=== PATIENT | male | born 1930 | race Caucasian/White ===

== ENCOUNTER 2016-12-09 14:48 | Observation (INO) | payer MEDICARE ==
[~2016-12-09] VITALS: Ht 193 cm; Wt 86.4 kg
[2016-12-09 15:59] LABS: BASOPHILS 0.2 % (0-2); EOSINOPHILS 0.2 % (0-7); HEMATOCRIT 39.8 % (42.0-54.0); HEMOGLOBIN 13.4 g/dL (13.5-17.5); IMMATURE GRANULOCYTES 0.1 % (0-5); LYMPHOCYTES 8.7 % (15-50); MCH 33.8 pg (26.0-34.0); MCHC 33.7 g/dL (31.0-37.0); MCV 100.3 fL (80.0-100.0); MONOCYTES 7.3 % (2-11); NEUTROPHILS 83.5 % (40-80); PLATELET COUNT 181 10x3/uL (130-400); RBC 3.97 10x6/uL (4.20-6.10); RDW 13.4 % (11.5-14.5); WBC 9.1 10x3/uL (4.8-10.8)
[2016-12-09 16:06] LABS: INR 1.05 (0.85-1.17); PROTIME 13.6 SECONDS (11.6-15.0)
[2016-12-09 16:12] LABS: ALBUMIN 3.4 g/dL (3.4-5.0); ANION GAP 11.5 mmol/L (8-16); BILIRUBIN - TOTAL 1.1 mg/dL (0.2-1.3); CALCIUM 8.7 mg/dL (8.5-10.1); CARBON DIOXIDE 26.4 mmol/L (21.0-32.0); CREATININE - SERUM 1.1 mg/dL (0.6-1.3); POTASSIUM - SERUM 3.9 mmol/L (3.5-5.1)
[2016-12-09 16:20] LABS: MAGNESIUM - SERUM 1.9 mg/dL (1.8-2.4); TROPONIN-I 0.021 ng/mL (0.000-0.060)
[2016-12-09 18:16] LABS: APPEARANCE CLEAR (CLEAR); BILIRUBIN NEGATIVE (NEGATIVE); COLOR YELLOW (YELLOW); GLUCOSE NEGATIVE (NEGATIVE); KETONE NEGATIVE (NEGATIVE); LEUKOCYTE ESTERASE NEGATIVE (NEGATIVE); NITRITE NEGATIVE (NEGATIVE); PROTEIN NEGATIVE (NEGATIVE); SPECIFIC GRAVITY 1.015 (1.005-1.020); UROBILINOGEN NORMAL (NORMAL)
[2016-12-09 18:40] LABS: UDS - AMPHET NEGATIVE QUAL (NEGATIVE); UDS - BARB NEGATIVE QUAL (NEGATIVE); UDS - BENZO NEGATIVE QUAL (NEGATIVE); UDS - COCAINE NEGATIVE QUAL (NEGATIVE); UDS - METH NEGATIVE QUAL (NEGATIVE); UDS - OPIATE POSITIVE QUAL (NEGATIVE); UDS - PCP NEGATIVE QUAL (NEGATIVE); UDS - THC NEGATIVE QUAL (NEGATIVE)
--- NOTE | 2016-12-09 21:51 | NUR ---
PT RECIEVED TO ROOM 2231 WITH INFUSION OF NS TO GRAVITY TO PIV 20 GA TO LEFT HAND COMPLAINS OF PAIN TO ARM NOTED REDNESS TO LEFT HAND AND UP LEFT ARM INFUSION STOPPED AND WILL RESITE IV.
[2016-12-09 22:22] LABS: CKMB 0.5 U/L (0.0-3.6); CREATINE KINASE 61 UL (21-232); TROPONIN-I 0.026 ng/mL (0.000-0.060)
[2016-12-09] MEDS ORDERED: ULTRAM50 MG PO (22:58)
[2016-12-09] MEDS ORDERED: K-TAB10 MEQ PO (22:58)
[2016-12-09] MEDS ORDERED: LEVOTHYROXINE50 MCG PO (23:02)
[2016-12-09] MEDS ORDERED: REQUIP4 MG PO (23:02)
[2016-12-09] MEDS ORDERED: FUROSEMIDE20 MG PO (23:03)
[2016-12-09] MEDS ORDERED: PROTONIX40 MG PO (23:03)
[2016-12-09 23:22] VITALS: BP 140/73; Ht 193 cm; Wt 86.4 kg
[2016-12-10 00:14] VITALS: BP 123/57
[2016-12-10 04:00] VITALS: BP 115/61
[2016-12-10 04:19] LABS: CKMB 0.9 U/L (0.0-3.6); CREATINE KINASE 54 UL (21-232); TROPONIN-I 0.022 ng/mL (0.000-0.060)
--- NOTE | 2016-12-10 04:47 | NUR ---
RESITED PIV EARLIER IN SHIFT 20 GA X 1 STICK TO RIGHT FORARM PATENT TO NS AT 100 ML/HR PER ORDER
--- NOTE | 2016-12-10 08:00 | NUR ---
PT AOX1 RESP EVEN AND NONLABORED PT DENIES NEEDS AT THIS TIME SRX2 BED AT LOWEST SETTING CALL LIGHT WITHIN REACH WILL CONTINUE TO MONITOR
[2016-12-10 08:18] VITALS: BP 116/74
[2016-12-10 10:15] LABS: CKMB 0.9 U/L (0.0-3.6); CREATINE KINASE 67 UL (21-232); TROPONIN-I 0.026 ng/mL (0.000-0.060)
[2016-12-10 12:24] VITALS: BP 149/71
--- NOTE | 2016-12-10 13:45 | NUR ---
IV DISCONTINUED WITH CATHETER INTACT AT THIS TIME PT AND CAREGIVER GIVEN DISCHARGE INSTRUCTIONS PT WALKED WITH FAMILY MEMBER TO PRIVATE VEHICLE HOME
== END 2016-12-10 13:46 | disposition home or self-care (01) ==
LOC: D.ER 14:48 → OBSVTIME 20:35 → D.MS 20:35
PROVIDERS: Family Medicine; Nurse Practitioner Family; ADMIT Family Medicine
DX: F03.90 Unspecified dementia, unspecified severity, without behavioral disturbance, psychotic disturbance, mood disturbance, and anxiety (principal)

== ENCOUNTER 2017-04-27 11:34 | Emergency (ER) | payer MEDICARE, BC ==
[2016-12-09 23:22] VITALS: BMI 23.1
[~2017-04-27 11:34] MED LIST: FUROSEMIDE20 MG PO; K-TAB10 MEQ PO; LEVOTHYROXINE50 MCG PO; PROTONIX40 MG PO; REQUIP4 MG PO; ULTRAM50 MG PO
== END 2017-04-27 14:47 | disposition home or self-care (01) ==
LOC: D.ER 11:34
DX: S01.112A Laceration without foreign body of left eyelid and periocular area, initial encounter (principal); W19.XXXA Unspecified fall, initial encounter; Y93.89 Activity, other specified; Y92.029 Unspecified place in mobile home as the place of occurrence of the external cause; S00.33XA Contusion of nose, initial encounter; F17.200 Nicotine dependence, unspecified, uncomplicated

== ENCOUNTER 2018-10-07 16:35 | Inpatient (IN) | payer MEDICARE, BC ==
[~2018-10-07] VITALS: Ht 188 cm; Wt 85.3 kg
[2018-10-07 17:23] LABS: BASOPHILS 0.3 % (0-2); EOSINOPHILS 1.6 % (0-7); HEMATOCRIT 39.3 % (42.0-54.0); HEMOGLOBIN 13.3 g/dL (13.5-17.5); IMMATURE GRANULOCYTES 0.1 % (0-5); LYMPHOCYTES 21.6 % (15-50); MCH 33.3 pg (26.0-34.0); MCHC 33.8 g/dL (31.0-37.0); MCV 98.3 fL (80.0-100.0); MONOCYTES 8.5 % (2-11); NEUTROPHILS 67.9 % (40-80); PLATELET COUNT 202 10x3/uL (130-400); RDW 13.3 % (11.5-14.5); WBC 7.3 10x3/uL (4.8-10.8)
[2018-10-07 17:37] LABS: ALBUMIN 3.2 g/dL (3.4-5.0); ALKALINE PHOSPHATASE 138 U/L (46-116); ALT (SGPT) 34 U/L (10-68); BILIRUBIN - TOTAL 0.65 mg/dL (0.2-1.3); CALC OSMOLALITY 283 mosm/kg (275-300); CALCIUM 8.8 mg/dL (8.5-10.1); CARBON DIOXIDE 28.2 mmol/L (21.0-32.0); CHLORIDE - SERUM 106 mmol/L (98-107); GLUCOSE 101 mg/dL (74-106); POTASSIUM - SERUM 3.8 mmol/L (3.5-5.1); PROTEIN - SERUM 6.9 g/dL (6.4-8.2); SODIUM 141 mmol/L (136-145); UREA NITROGEN 21 mg/dL (7-18); eGFR NON AFRICAN AMERICAN 75 mL/min (90-120)
[2018-10-07 17:56] LABS: COLOR YELLOW (YELLOW)
[2018-10-07 17:57] LABS: APPEARANCE CLEAR (CLEAR); BILIRUBIN NEGATIVE (NEGATIVE); GLUCOSE NEGATIVE (NEGATIVE); KETONE NEGATIVE (NEGATIVE); NITRITE NEGATIVE (NEGATIVE); PROTEIN NEGATIVE (NEGATIVE); SPECIFIC GRAVITY 1.025 (1.005-1.020); UROBILINOGEN NORMAL (NORMAL)
[2018-10-07 17:58] LABS: BACTERIA FEW /hpf (NONE SEEN); RED CELLS - URINE OCC /hpf (0-5); WHITE CELLS - URINE RARE /hpf (0-5)
[2018-10-07 18:41] VITALS: BP 142/61
[2018-10-07 19:45] VITALS: BP 150/74
[2018-10-07 20:41] VITALS: BP 150/74; BMI 24.2
[2018-10-07 23:55] VITALS: BP 151/80
[2018-10-08 03:45] VITALS: BP 160/70
[2018-10-08 08:42] VITALS: BP 127/67
--- NOTE | 2018-10-08 14:25 | HP ---
PATIENT: BILLY GUERRERO MEDICAL RECORD: [id number] ACCOUNT: [id number] LOCATION:[facility] : 30 ADMISSION DATE: 10/07/18 PCP: BARTOLOME ROLLE MD HISTORY AND PHYSICAL EXAMINATION CHIEF COMPLAINT: Pain and swelling in groin. HISTORY OF PRESENT ILLNESS: This is an 88-year-old male who presented to the Emergency Department complaining of acute onset of left groin pain, just this morning. He denies any trauma. His workup in the Emergency Department was fairly unremarkable except for left inguinal hernia. The ER doctor states he could partially reduce it, but not all the way. He has fairly normal BMs and passing urine okay. He is admitted. PAST MEDICAL AND SURGICAL HISTORY: He has some dementia. He has a history of BPH. He has a history of hypothyroidism. He has degenerative disc disease in his back. He has had restless leg syndrome. He has a history of aortic stenosis with murmur. According to his caregiver, Ms. Funez, Dr. Nuñez has recommended that he have surgery for this. However, it is stated that the patient really does not want to have any kind of surgery. He is ready to at any time. Basically, he had stopped taking any medications except Tramadol. CURRENT MEDICATIONS: Includes Tramadol 50 mg t.i.d. He was previously on Ropinirole, trazodone, Protonix, levothyroxine, Lasix, and potassium, but he is no longer taking any of them. PAST SURGICAL HISTORY: Reportedly transurethral resection of the prostate and right total knee arthroplasty. ALLERGIES: No known drug allergies. HABITS: Former smoker, occasional alcohol, no illicit drug use. SOCIAL HISTORY: He is retired, . FAMILY HISTORY: Parents are . REVIEW OF SYSTEMS: GENERAL: Reported that he has lost about 20 pounds or more in the last few months. HEENT: No particular sinus or allergy problems. RESPIRATORY: No history of asthma or emphysema. CARDIAC: He has history of aortic stenosis. GASTROINTESTINAL: Some heartburn. GENITOURINARY: He has a history of BPH. MUSCULOSKELETAL: He complains of chronic back pain. He has had his right knee replaced. NEUROLOGIC: No seizures. No migraines. He does have dementia with very poor short-term memory. PSYCHIATRIC: No depression or melancholia. PHYSICAL EXAMINATION: VITAL SIGNS: Temperature 97.2, pulse 54, respirations 18, blood pressure 142/61, and O2 sat 99%. GENERAL: He is in no acute distress, lying comfortably in the bed. He is very HISTORY AND PHYSICAL [id number] BILLY GUERRERO, talkative. HEENT: Unremarkable. NECK: Supple. HEART: Regular rate and rhythm with III-IV/ systolic murmur. LUNGS: Clear. ABDOMEN: Soft, except he does have swelling in the left inguinal canal consistent with hernia. EXTREMITIES: No edema. LABORATORY DATA: Urinalysis is unremarkable. CBC with a white count of 7.3, hemoglobin 13, and hematocrit 39. Basic metabolic panel is all okay. Alkaline phosphatase is 138. Other liver functions are all normal. ASSESSMENT: 1. Left inguinal hernia. 2. Aortic stenosis. 3. Dementia. 4. Hypothyroidism. 5. Chronic low back pain. PLAN: Surgical consultation. Possible cardiac evaluation. Again, according to his caregiver and the patient, he declines taking medications. He has declined surgery for his aortic valve. Basically, he is ready to any time, but he has painful hernia now. TRANSINT:[id number] Voice Confirmation ID: [id number] DOCUMENT ID: [id number] MIGUEL NATHAN MD at 1425 CC: [id number] DICTATION DATE: 10/07/182153 MANAGER MEDICAL: 10/08/18 0029 ADM IN [facility] [address] [place] [address]
[2018-10-08] MEDS ORDERED: HYDROCODON-ACE1 EAC7 PO (14:36)
[2018-10-08 15:07] VITALS: Ht 188 cm; Wt 85.3 kg
[2018-10-08 16:10] VITALS: BP 163/90
[2018-10-08 18:36] VITALS: BP 72/38
[2018-10-08 21:12] VITALS: BP 133/85
[2018-10-09 01:43] VITALS: BP 143/81
[2018-10-09 09:13] LABS: BASOPHILS 0.2 % (0-2); EOSINOPHILS 0.3 % (0-7); HEMATOCRIT 38.2 % (42.0-54.0); HEMOGLOBIN 13.2 g/dL (13.5-17.5); IMMATURE GRANULOCYTES 0.3 % (0-5); LYMPHOCYTES 13.8 % (15-50); MCH 33.5 pg (26.0-34.0); MCHC 34.6 g/dL (31.0-37.0); MEAN PLATELET VOLUME 10.4 fL (7.4-10.4); MONOCYTES 12.1 % (2-11); NEUTROPHILS 73.3 % (40-80); PLATELET COUNT 204 10x3/uL (130-400); RBC 3.94 10x6/uL (4.20-6.10); RDW 13.4 % (11.5-14.5)
[2018-10-09 09:31] LABS: ANION GAP 12.6 mmol/L (8-16); CALCIUM 8.8 mg/dL (8.5-10.1); CARBON DIOXIDE 24.7 mmol/L (21.0-32.0); CREATININE - SERUM 1.2 mg/dL (0.6-1.3); POTASSIUM - SERUM 4.3 mmol/L (3.5-5.1)
[2018-10-09 09:50] LABS: WBC 12.8 10x3/uL (4.8-10.8)
--- NOTE | 2018-10-09 09:55 | MORECARE ---
CASE MANAGEMENT DISCHARGE SUMMARY PATIENT: BILLY GUERRERO UNIT: [id number] ADM DATE: 10/08/18 AGE: 88 : 30 SEX: M ROOM/BED: D.[facility] AUTHOR: YFN ENGLAND PHYSICIAN: REFERRING PHYSICIAN: BARTOLOME ROLLE MD DATE OF SERVICE: 10/09/18 Discharge Plan Patient Name: BILLY GUERRERO Facility: [facility]:[place] : 1930 Planned Disposition: Inpatient Rehab Anticipated Discharge Date: Discharge Date: Expected LOS: Initial Reviewer: [email or web address] Initial Review Date: 10/09/2018 Generated: 10/09/18 10:55 am Patient Name: BILLY GUERRERO Page [id number] at 0955 All edits/amendments must be made on the electronic document DICTATION DATE: 10/09/18953 GRAVEL TRUCK DRIVER: SHAILESH 10/09/18953 RPT#: [id number] DC DATE: STATUS: ADM IN [facility] [address] [place] [address] END OF REPORT
--- NOTE | 2018-10-09 10:02 | MORECARE ---
CASE MANAGEMENT DISCHARGE SUMMARY PATIENT: BILLY GUERRERO UNIT: [id number] ADM DATE: 10/08/18 AGE: 88 : 30 SEX: M ROOM/BED: D.2231 AUTHOR: YFN ENGLAND PHYSICIAN: REFERRING PHYSICIAN: BARTOLOME ROLLE MD DATE OF SERVICE: 10/09/18 Discharge Plan Patient Name: BILLY GUERRERO Facility: [facility]:[place] : 1930 Planned Disposition: Inpatient Rehab Anticipated Discharge Date: Discharge Date: Expected LOS: Initial Reviewer: [email or web address] Initial Review Date: 10/09/2018 Generated: 10/09/18 11:01 am DCPIA - Discharge Planning Initial Assessment Updated by [email or web address]: Marianna Mobley on 10/09/18 9:59 am * Is the patient Alert and Oriented? Yes * How many steps to enter\exit or inside your home? 0/5 * PCP Dr. Rolle * Pharmacy [facility] * Preadmission Environment Home with Family * ADLs Partial Dependent * Partial ADLs (Assistance needed) Ambulation Bathing Medication Management * Equipment Bedside Commode Rolling Walker * List name and contact numbers for known caregivers / representatives who currently or will assist patient after discharge: Rin Cartergano - natalie/caregiver/[facility] - [phone] * Verbal permission to speak to the caregivers and representatives has been obtained from the patient. Yes * Community resources currently utilized None * Additional services required to return to the preadmission environment? Yes * Can the patient safely return to the preadmission environment? No * Has this patient been hospitalized within the prior 30 days at any hospital? No Last DP export: 10/09/18 8:55 am Patient Name: BILLY GUERRERO Page [id number] at 1002 All edits/amendments must be made on the electronic document DICTATION DATE: 10/09/18 1001 COIL WINDING MACHINES SET UP MECHANIC: SHAILESH 10/09/18 1001 RPT#: [id number] DC DATE: STATUS: ADM IN [place] [address] [place] [address] END OF REPORT
--- NOTE | 2018-10-09 10:09 | MORECARE ---
CASE MANAGEMENT DISCHARGE SUMMARY PATIENT: BILLY GUERRERO UNIT: [id number] ADM DATE: 10/08/18 AGE: 88 : 30 SEX: M ROOM/BED: D.2231 AUTHOR: YFN ENGLAND PHYSICIAN: REFERRING PHYSICIAN: BARTOLOME ROLLE MD DATE OF SERVICE: 10/09/18 Discharge Plan Patient Name: BILLY GUERRERO Facility: [facility]:[place] : 1930 Planned Disposition: Inpatient Rehab Anticipated Discharge Date: Discharge Date: Expected LOS: Initial Reviewer: [email or web address] Initial Review Date: 10/09/2018 Generated: 10/09/18 11:09 am Comments DCP- Discharge Planning Updated by [id number]: Marianna Mobley on 10/09/18 9:[address] Patient Name: BILLY GUERRERO Admission Status: ER Accout number: [id number] Admission Date: 10-08-2018 : 1930 Admission Diagnosis: Attending: BARTOLOME ROLLE Current LOS: 1 Anticipated DC Date: Planned Disposition: Inpatient Rehab Primary Insurance: MEDICARE A & B Discharge Planning Comments: Met with patient and his niece to discuss discharge planning/needs. He lives with his niece (Rin). She states she is also his POA. She states that he has 5 steps to go down into his apartment area in her home. She states that she sets up his medication box and assists him upstairs for his daily shower. She states otherwise, he stays in his apartment area where she has the cooking elements turned off for safety, but he has a microwave and refrigerator and living/bed rooms. She states she encourages him to use his walker, but doesn't always use it and has been falling more recently. She would like him to go to a short term rehab at [facility] or [facility]. She did sign [facility] for [facility] if not accepted to inpatient rehab. CM will continue to follow and assist with discharge planning/needs. Technical System Analyst: Marianna Mobley DCPIA - Discharge Planning Initial Assessment Updated by [id number]: Marianna Mobley on 10/09/18 9:59 am * Is the patient Alert and Oriented? Yes * How many steps to enter\exit or inside your home? 0/5 * PCP Dr. Rolle * Pharmacy [facility] [address] * Preadmission Environment Home with Family * ADLs Partial Dependent * Partial ADLs (Assistance needed) Ambulation Bathing Medication Management * Equipment Bedside Commode Rolling Walker * List name and contact numbers for known caregivers / representatives who currently or will assist patient after discharge: Rin Angel - niece/caregiver/[facility] - [phone] * Verbal permission to speak to the caregivers and representatives has been obtained from the patient. Yes * Community resources currently utilized None * Additional services required to return to the preadmission environment? Yes * Can the patient safely return to the preadmission environment? No * Has this patient been hospitalized within the prior 30 days at any hospital? No Coverage Notice Reviewer: [email or web address] Alva Mobley Notice Issued Date-Time: 10/09/2018 10:04 Notice Type: Patient Choice Letter Notice Delivered To: Family Member Relationship to Patient: Niece Death Claim Examiner Name: Rin Angel Delivery Method: HAND - Hand Delivered Hattie Days: Prior Verbal Notification: Recipient Understood Notice: Yes Recipient Signature: Yes Med Rec Note Co-signed by Attending: Coverage Notice Comment: [facility] for [facility] Last DP export: 10/09/18 9:02 am Patient Name: BILLY GUERRERO Page 43649 at 1009 All edits/amendments must be made on the electronic document DICTATION DATE: 10/09/18 1008 COSMETOLOGIST: SHAILESH 10/09/18 1008 RPT#: [id number] DC DATE: STATUS: ADM IN [facility] [address] [place] [address] END OF REPORT
[2018-10-09 12:26] LABS: CKMB 2.1 U/L (0.0-3.6); CREATINE KINASE 193 UL (21-232); TROPONIN-I 0.057 ng/mL (0.000-0.060)
[2018-10-09 14:00] VITALS: BP 135/75; BP 140/104
--- NOTE | 2018-10-09 14:43 | MORECARE ---
CASE MANAGEMENT DISCHARGE SUMMARY PATIENT: BILLY GUERRERO UNIT: [id number] ADM DATE: 10/08/18 AGE: 88 : 30 SEX: M ROOM/BED: D.2231 AUTHOR: YFN ENGLAND PHYSICIAN: REFERRING PHYSICIAN: BARTOLOME ROLLE MD DATE OF SERVICE: 10/09/18 Discharge Plan Patient Name: BILLY GUERRERO Facility: [facility]:[place] : 1930 Planned Disposition: Inpatient Rehab Anticipated Discharge Date: Discharge Date: Expected LOS: Initial Reviewer: [email or web address] Initial Review Date: 10/09/2018 Generated: 10/09/18 3:43 pm Comments DCP- Discharge Planning Updated by [id number]: Marianna Meredithsusan on 10/09/18 1:[address] Patient Name: BILLY GUERRERO Encounter No: [id number] : 1930 Primary Insurance: MEDICARE A & B Anticipated DC Date: Planned Disposition: Inpatient Rehab External Planned Provider: : DCP follow-up note: Patient and family in agreement with discharge plan. No changes to plan. He is discharging today to inpatient rehab. I called Rin and informed her of this and she agrees with discharge plan. Case management will follow and assist as needed. Marianna Meredithsusan DCP- Discharge Planning Updated by [id number]: Marianna Mobley on 10/09/18 9:[address] Patient Name: BILLY GUERRERO Admission Status: ER Accout number: [id number] Admission Date: 10-08-2018 : 1930 Admission Diagnosis: Attending: BARTOLOME ROLLE Current LOS: 1 Anticipated DC Date: Planned Disposition: Inpatient Rehab Primary Insurance: MEDICARE A & B Discharge Planning Comments: Met with patient and his niece to discuss discharge planning/needs. He lives with his niece (Rin). She states she is also his POA. She states that he has 5 steps to go down into his apartment area in her home. She states that she sets up his medication box and assists him upstairs for his daily shower. She states otherwise, he stays in his apartment area where she has the cooking elements turned off for safety, but he has a microwave and refrigerator and living/bed rooms. She states she encourages him to use his walker, but doesn't always use it and has been falling more recently. She would like him to go to a short term rehab at [facility]. She did sign [facility] for [facility] if not accepted to inpatient rehab. CM will continue to follow and assist with discharge planning/needs. Inhalation Therapy Aides Teacher: Marianna Mobley DCPIA - Discharge Planning Initial Assessment Updated by [id number]: Marianna Mobley on 10/09/18 9:59 am * Is the patient Alert and Oriented? Yes * How many steps to enter\exit or inside your home? 0 * PCP Dr. Rolle * Pharmacy [facility] * Preadmission Environment Home with Family * ADLs Partial Dependent * Partial ADLs (Assistance needed) Ambulation Bathing Medication Management * Equipment Bedside Commode Rolling Walker * List name and contact numbers for known caregivers / representatives who currently or will assist patient after discharge: Rin Stanley - niece/caregiver/[facility] - [phone] * Verbal permission to speak to the caregivers and representatives has been obtained from the patient. Yes * Community resources currently utilized None * Additional services required to return to the preadmission environment? Yes * Can the patient safely return to the preadmission environment? No * Has this patient been hospitalized within the prior 30 days at any hospital? No Coverage Notice Reviewer: [id number] - Marianna Mobley Notice Issued Date-Time: 10/09/2018 10:04 Notice Type: Patient Choice Letter Notice Delivered To: Family Member Relationship to Patient: Niece Modeling Director Name: Rin Angel Delivery Method: HAND - Hand Delivered Hattie Days: Prior Verbal Notification: Recipient Understood Notice: Yes Recipient Signature: Yes Med Rec Note Co-signed by Attending: Coverage Notice Comment: [facility] Last DP export: 10/09/18 9:09 am Patient Name: BILLY GUERRERO Page [phone] at 1443 All edits/amendments must be made on the electronic document DICTATION DATE: 10/09/181441 ANIMAL HOSPITAL CLERK: SHAILESH 10/09/181441 RPT#: [id number] SD DATE: STATUS: ADM IN [facility] [address] [place] [address] END OF REPORT
[2018-10-09 15:45] LABS: CKMB 2.4 U/L (0.0-3.6); CREATINE KINASE 170 UL (21-232); TROPONIN-I 0.053 ng/mL (0.000-0.060)
[2018-10-09] MEDS ORDERED: HYDROCODON-ACE1 EAC7 PO (17:35)
[2018-10-09] MEDS ORDERED: MIRALAX17 GM PO (19:50)
[2018-10-10] MEDS ORDERED: PROTONIX40 MG PO (12:17)
[2018-10-10] MEDS ORDERED: SYNTHROID50 MCG PO (12:27)
[2018-10-10] MEDS ORDERED: FUROSEMIDE20 MG PO (12:27)
[2018-10-10] MEDS ORDERED: REQUIP4 MG PO (12:28)
[2018-10-10] MEDS ORDERED: K-TAB10 MEQ PO (12:29)
== END 2018-10-09 18:29 | DRG 351 ==
LOC: D.ER 16:35 → D.EDHOLD 18:34 → D.MS 18:34 → OBSVTIME 18:34 → D.EDHOLD 18:34 → D.MS 19:51
PROVIDERS: Emergency Medicine; Surgery; ADMIT Family Medicine; ATTEND Family Medicine
PROC: 0YU60JZ Supplement Left Inguinal Region with Synthetic Substitute, Open Approach (ICD-10-PCS; principal; 2018-10-07)
DX: K40.30 Unilateral inguinal hernia, with obstruction, without gangrene, not specified as recurrent (principal); F03.91 Unspecified dementia, unspecified severity, with behavioral disturbance; F05 Delirium due to known physiological condition; F03.90 Unspecified dementia, unspecified severity, without behavioral disturbance, psychotic disturbance, mood disturbance, and anxiety; E03.9 Hypothyroidism, unspecified; Z91.83 Wandering in diseases classified elsewhere

== ENCOUNTER 2018-10-09 12:56 | Inpatient (IN) | payer MEDICARE, BC ==
[~2018-10-09 12:56] MED LIST changes: +HYDROCODON-ACE1 EAC7 PO
[2018-10-09] MEDS ORDERED: HYDROCODON-ACE1 EAC7 PO (17:35)
--- NOTE | 2018-10-09 19:39 | NUR ---
PATIENT IS RESTING IN HIS BED. HIS BED IS DOWN LOW WITH SIDE RAILS UP X2 AND CALL LIGHT IS IN REACH.
[2018-10-09] MEDS ORDERED: MIRALAX17 GM PO (19:50)
--- NOTE | 2018-10-09 21:44 | NUR ---
PT RESTING IN BED WITH EYES OPEN. ALERT TO SELF. PT IS VERY [place]. IM UNABLE TO DETERMINE HIS ORIENTATION DUE TO THIS. PT IS NOT FOLLOWING SAFETY INSTRUCTIONS. HE HAS GOTTEN OUT OF BED SEVERAL TIMES THIS SHIFT. BED ALARM RINGS WHEN HE GETS UP. PT INC. OF A SMALL AMOUNT OF URINE AT THIS TIME. INC. CARE GIVEN. SR'S ARE UP X 3 IN BED. CALL LIGHT AND BEDSIDE TABLE ARE WITHIN EASY REACH.
[2018-10-09 22:01] VITALS: BP 141/82
[2018-10-09 22:21] VITALS: BP 141/82; BMI 24.2
--- NOTE | 2018-10-09 23:42 | NUR ---
PT IS RESTING QUIETLY IN BED WITH EYES CLOSED. RESPS ARE EVEN AND UNLABORED. NO ACUTE DISTRESS NOTED.
[2018-10-10 00:44] LABS: CREATINE KINASE 137 UL (21-232)
--- NOTE | 2018-10-10 03:32 | NUR ---
PT RESTING IN BED WITH EYES CLOSED. ASSISTED TO THE BATHROOM PRN.
--- NOTE | 2018-10-10 05:56 | NUR ---
PT IS RESTING IN BED WITH EYES OPEN. NO NEEDS VOICED.
[2018-10-10 06:17] LABS: BASOPHILS 0.1 % (0-2); EOSINOPHILS 0.4 % (0-7); HEMATOCRIT 36.6 % (42.0-54.0); HEMOGLOBIN 12.6 g/dL (13.5-17.5); IMMATURE GRANULOCYTES 0.3 % (0-5); LYMPHOCYTES 12.9 % (15-50); MCH 33.5 pg (26.0-34.0); MCHC 34.4 g/dL (31.0-37.0); MCV 97.3 fL (80.0-100.0); MEAN PLATELET VOLUME 10.5 fL (7.4-10.4); MONOCYTES 10.5 % (2-11); NEUTROPHILS 75.8 % (40-80); PLATELET COUNT 199 10x3/uL (130-400); RBC 3.76 10x6/uL (4.20-6.10); RDW 13.5 % (11.5-14.5); WBC 12.8 10x3/uL (4.8-10.8)
[2018-10-10 06:57] LABS: CALC OSMOLALITY 278 mosm/kg (275-300); CALCIUM 8.4 mg/dL (8.5-10.1); CARBON DIOXIDE 24.8 mmol/L (21.0-32.0); CHLORIDE - SERUM 105 mmol/L (98-107); CKMB 0.6 U/L (0.0-3.6); CREATINE KINASE 108 UL (21-232); CREATININE - SERUM 0.9 mg/dL (0.6-1.3); GLUCOSE 110 mg/dL (74-106); POTASSIUM - SERUM 3.8 mmol/L (3.5-5.1); SODIUM 138 mmol/L (136-145); TROPONIN-I 0.034 ng/mL (0.000-0.060); eGFR NON AFRICAN AMERICAN 84 mL/min (90-120)
[2018-10-10 06:58] LABS: UREA NITROGEN 18 mg/dL (7-18)
[2018-10-10 08:00] VITALS: BP 103/47
--- NOTE | 2018-10-10 08:00 | NUR ---
SHIFT ASSMT COMPLETED.
[2018-10-10 10:13] VITALS: BMI 24.1
[2018-10-10 11:28] LABS: CKMB 0.7 U/L (0.0-3.6); CREATINE KINASE 93 UL (21-232); TROPONIN-I 0.028 ng/mL (0.000-0.060)
--- NOTE | 2018-10-10 11:46 | NUR ---
PATIENT ADMITTED TO REHAB FROM ACUTE FLOOR. DR. ROLLE IS HIS PCP. HIS RORY RAYA IS HIS POA. DME AT HOME IS WALKER AND A BEDSIDE COMMODE. DISCHARGE PLANS ARE FOR HIM TO RETURN HOME WITH FAMILY. WILL CONTINUE TO FOLLOW WITH PATIENT. HE IS A CLIENT OF [facility] AT HOME.
[2018-10-10] MEDS ORDERED: PROTONIX40 MG PO (12:17)
[2018-10-10] MEDS ORDERED: SYNTHROID50 MCG PO (12:27)
[2018-10-10] MEDS ORDERED: FUROSEMIDE20 MG PO (12:27)
[2018-10-10] MEDS ORDERED: REQUIP4 MG PO (12:28)
[2018-10-10] MEDS ORDERED: K-TAB10 MEQ PO (12:29)
--- NOTE | 2018-10-10 19:25 | NUR ---
PATIENT ASSISTED BACK TO BED. BED IS DOWN LOW WITH SIDE RAILS UP X2. CALL LIGHT IS IN REACH.
--- NOTE | 2018-10-10 20:05 | NUR ---
PT WITNESSED GETTING UP MULTIPLE TIMES. BED ALARM KEPT GOING OFF. PT STATED " GET A STOOL SOFTNER PILL" THIS NURSE TOLD PT HE WOULD HAVE TO ASK THE DOCTOR IN THE MORNING. PT GOT MAD AND STATED HES GOING TO SIT ON THE TOILET UNTIL HE HAS A BM. THIS NURSE GAVE PT PRUNE JUICE AND SPRITE. PT THEN HAD BM AND STATED HE WAS BETTER. PT GETS UP WITHOUT CALLING FOR HELP EVERY TIME. PT KLETSEL DEHE [place] AND CONFUSED. BED IN LOW. SIDE RAILS X2. RESP EVEN AND UNLABORED. DENIES FURTHER NEEDS OR PAIN. WCTM.
[2018-10-10 21:35] VITALS: BP 100/42
--- NOTE | 2018-10-10 21:45 | NUR ---
PT STILL GETTING UP WITHOUT HELP. BED ALARM GOING OFF. PT GOING TO BATHROOM. THIS NURSE HAS EDUCATED MULTIPLE TIMES ABOUT CALLING BEFORE GETTING UP AND PT JUST IGNORES THIS NURSE. GAVE PT PRUNE JUICE AND SPRITE DUE TO PT GETTING MAD THAT HE HAS NOT HAD A BM TODAY. NOT LONG AFTER JUICE WAS GONE PT HAD BM. WCTM
--- NOTE | 2018-10-11 03:55 | NUR ---
PT GETTING UP AGAIN MULTIPLE TIMES GOING TO AND FROM BATHROOM. PT STATES HE NEEDS TO HAVE A BM AND NEEDS A PILL. EDUCATED PT FOR THE THIRD TIME ABOUT HOW HE ALREADY HAD A BM TONIGHT AND HE CAN TALK TO THE DOCTOR ABOUT THE PILL. BED ALARM SOUNDING EVERY TIME PT GETS UP. PT GETTING UP ABOUT EVERY 5 MIN SINCE 0330. CALL LIGHT IN REACH. [facility]
--- NOTE | 2018-10-11 09:08 | NUR ---
THE PATIENT WAS LYING IN BED AND TALKING TO STAFF WHEN STAFF ENTERED HIS ROOM. BED IS IN THE LOW POSITION WITH SIDERAILS X2 AND CALL LIGHT WITHIN REACH. THE PATIENT WAS EDUCATED ON TH EUSE OF A CALL LIGHT AND DEMONSTRATED UNDERSTANDING VIA TEACHBACK METHOD. THE PATIENT APPEARS COMFORTABLE WITH NO QUESTIONS OR CONCERNS AT THIS TIME.
[2018-10-11 09:25] VITALS: BP 115/67
[2018-10-11 19:10] VITALS: BP 92/48
--- NOTE | 2018-10-11 19:10 | NUR ---
GREETED PATIENT AND INTRODUCED MYSELF HIS NURSE. PATIENT IS LAYING IN BED IN SUPINE POSITION. HOB AT 20 DEGREES. DENIES ANY FURTHER NEEDS AT THIS TIME. CALL LIGHT IN REACH.
--- NOTE | 2018-10-12 02:05 | NUR ---
PATIENT RESTING QUIETLY LAYING ON RIGHT SIDE. HOB AT 30 DEGREES. RESPIRATIONS EVEN. NO S/S OF DISTRESS. SR UP X 2. BED IN LOWEST POSITION. CALL LIGHT IN REACH.
[2018-10-12 07:01] LABS: BASOPHILS 0.3 % (0-2); EOSINOPHILS 2.6 % (0-7); HEMATOCRIT 32.9 % (42.0-54.0); IMMATURE GRANULOCYTES 0.5 % (0-5); LYMPHOCYTES 32.3 % (15-50); MCH 32.8 pg (26.0-34.0); MCHC 33.4 g/dL (31.0-37.0); MCV 98.2 fL (80.0-100.0); MEAN PLATELET VOLUME 10.7 fL (7.4-10.4); MONOCYTES 9.3 % (2-11); PLATELET COUNT 225 10x3/uL (130-400); RBC 3.35 10x6/uL (4.20-6.10); RDW 13.4 % (11.5-14.5); WBC 7.6 10x3/uL (4.8-10.8)
[2018-10-12 07:12] LABS: CALC OSMOLALITY 281 mosm/kg (275-300); CALCIUM 8.3 mg/dL (8.5-10.1); CARBON DIOXIDE 31.1 mmol/L (21.0-32.0); CHLORIDE - SERUM 107 mmol/L (98-107); GLUCOSE 92 mg/dL (74-106); POTASSIUM - SERUM 3.6 mmol/L (3.5-5.1); SODIUM 140 mmol/L (136-145); UREA NITROGEN 22 mg/dL (7-18); eGFR NON AFRICAN AMERICAN 75 mL/min (90-120)
[2018-10-12 09:12] VITALS: BP 95/45
--- NOTE | 2018-10-12 10:37 | NUR ---
THE PATIENT WAS WORKING WITH THERAPY WHEN STAFF ARRIVED IN HIS AREA. BED IS IN THE LOW POSITION WITH SIDERAILS X2 AND CALL LIGHT WITHIN REACH. THE PATIENT WAS EDUCATED ON THE USE OF A CALL LIGHT AND DEMONSTRATES UNDERSTANDING VIA TEACHBACK METHOD. THE PATIENT APPEARS COMFORTABLE WITH NO QUESTIONS OR CONCERNS AT THIS TIME.
--- NOTE | 2018-10-12 18:10 | NUR ---
I have reviewed this patient and I concur with the Shift Assessment completed by the Licensed Practical Nurse today this shift.
[2018-10-12 19:22] VITALS: BP 117/61
--- NOTE | 2018-10-12 19:29 | NUR ---
PT IS SITTING ON THE SIDE OF HIS BED VISITING WITH HIS ROOM MATE. ALERT AND ORIENTED X 3. DENIES ACUTE DISCOMFORT AT THIS TIME. NO NEEDS VOICED. VSS. SR'S ARE UP X 2 IN BED. CALL LIGHT AND BEDSIDE TABLE ARE WITHIN EASY REACH.
--- NOTE | 2018-10-12 21:29 | NUR ---
PT RESTING IN BED WITH EYES OPEN. NO ACUTE DISTRESS NOTED. NO NEEDS VOICED.
--- NOTE | 2018-10-12 23:56 | NUR ---
PT IS RESTING QUIETLY IN BED WITH EYES CLOSED. RESPS ARE EVEN AND UNLABORED. NO ACUTE DISTRESS NOTED.
--- NOTE | 2018-10-13 03:12 | NUR ---
RESTING IN BED WITH EYES CLOSED AND RESPIRATIONS UNLABORED. NO DISTRESS NOTED.
--- NOTE | 2018-10-13 03:13 | NUR ---
RESTING IN BED WITH EYES CLOSED AND RESPIRATIONS UNLABORED. NO DISTRESS NOTED.
--- NOTE | 2018-10-13 05:51 | NUR ---
PT RESTING IN BED WITH EYES OPEN. REQUESTED AND GIVEN A CUP OF COFFEE. NO FURTHER NEEDS VOICED.
--- NOTE | 2018-10-13 08:00 | NUR ---
RESTING QUIETLY IN BED, EYES CLOSED. NO S/S DISTRESS NOTED. CALL LIGHT IN REACH
--- NOTE | 2018-10-13 12:12 | NUR ---
SITTING UP IN WC IN ROOM EATING LUNCH. FEEDS SELF. HAS CALL LIGHT IN LAP. IS VERY [place].
[2018-10-13 13:19] VITALS: BP 100/58
--- NOTE | 2018-10-13 15:50 | NUR ---
HAS BEEN SITTING UP IN BED AND IS NOW LAYING DOWN. CALL LIGHT IN REACH
--- NOTE | 2018-10-13 19:15 | NUR ---
PATIENT IS AWAKE AND RESTING IN HIS BED. BED IS DOWN LOW WITH SIDE RAILS UP X2. CALL LIGHT IS IN REACH.
--- NOTE | 2018-10-13 21:54 | NUR ---
PT IS RESTING IN BED WITH EYES OPEN. NO NEEDS VOICED. PT STATES HE HAS TROUBLE GETTING TO SLEEP AT NIGHT. NO NEEDS VOICED AT THIS TIME. ASSISTED TO BATHROOM PRN.
--- NOTE | 2018-10-14 00:01 | NUR ---
PT UP IN HALLS AMBULATING WITH RW. AMBULATED 75FT, AND THEN WENT BACK TO BED.
--- NOTE | 2018-10-14 02:29 | NUR ---
PT RESTING QUIETLY IN BED WITH EYES CLOSED.
--- NOTE | 2018-10-14 06:05 | NUR ---
PT RESTING IN BED WITH EYES CLOSED.
[2018-10-14 07:35] VITALS: BP 124/53
--- NOTE | 2018-10-14 07:45 | NUR ---
RESTING QUIETLY IN BED. EYES CLOSED. NO S/S DISTRESS. BED IN LOWEST POSITION. CALL LIGHT IN REACH. SIDE RAILS UP X2.
--- NOTE | 2018-10-14 12:40 | NUR ---
SITTING UP ON SIDE OF BED EATING LUNCH. FEEDS SELF. DENIES NEEDS. CALL LIGHT IN REACH.
--- NOTE | 2018-10-14 15:29 | NUR ---
HAS COME TO NURSE DESK A FEW TIMES THIS SHIFT AND MADE SURE NURSES KNEW HE WANTED TO GO HOME.....SPOKE WITH HIS DAUGHTER ON PHONE AND SHE IS WANTING HIM TO STAY IN REHAB FOR NOW. ENCOURAGED PT TO STAY IN REHAB.
--- NOTE | 2018-10-14 15:40 | NUR ---
RESTING QUIETLY IN BED. NOW LAYING ON SIDE. NO S/S DISTRESS OR NEEDS. CALL LIGHT IN REACH
--- NOTE | 2018-10-14 17:55 | NUR ---
SITTING ON SIDE OF BED EATING SUPPER. FAMILY BROUGHT HIM SUPPER AND HE ATE WELL. CALL LIGHT IN REACH
--- NOTE | 2018-10-14 19:09 | NUR ---
PATIENT IS RESTING IN HIS BED WITH HIS EYES CLOSED. HIS BED IS DOWN LOW WITH SIDE RAILS UP X2 AND CALL LIGHT IS IN REACH.
[2018-10-14 19:56] VITALS: BP 114/61
--- NOTE | 2018-10-14 21:30 | NUR ---
PT RESTING QUIETLY IN BED WITH EYES CLOSED.
--- NOTE | 2018-10-15 00:23 | NUR ---
PT IS RESTING QUIETLY IN BED WITH EYES CLOSED. RESPS ARE EVEN AND UNLABORED. NO ACUTE DISTRESS NOTED.
--- NOTE | 2018-10-15 04:10 | NUR ---
PT RESTING IN BED WITH EYES CLOSED. NO DISTRESS NOTED.
[2018-10-15 07:03] LABS: BASOPHILS 0.3 % (0-2); EOSINOPHILS 4.6 % (0-7); HEMATOCRIT 33.1 % (42.0-54.0); HEMOGLOBIN 11.1 g/dL (13.5-17.5); IMMATURE GRANULOCYTES 0.4 % (0-5); MCH 32.7 pg (26.0-34.0); MCHC 33.5 g/dL (31.0-37.0); MCV 97.6 fL (80.0-100.0); MONOCYTES 9.2 % (2-11); NEUTROPHILS 51.5 % (40-80); PLATELET COUNT 247 10x3/uL (130-400); RBC 3.39 10x6/uL (4.20-6.10); RDW 13.4 % (11.5-14.5); WBC 7.4 10x3/uL (4.8-10.8)
[2018-10-15 07:08] LABS: CALC OSMOLALITY 278 mosm/kg (275-300); CALCIUM 8.2 mg/dL (8.5-10.1); CARBON DIOXIDE 28.5 mmol/L (21.0-32.0); CHLORIDE - SERUM 106 mmol/L (98-107); CREATININE - SERUM 0.9 mg/dL (0.6-1.3); GLUCOSE 89 mg/dL (74-106); POTASSIUM - SERUM 3.7 mmol/L (3.5-5.1); SODIUM 140 mmol/L (136-145); UREA NITROGEN 16 mg/dL (7-18); eGFR NON AFRICAN AMERICAN 84 mL/min (90-120)
[2018-10-15 08:07] VITALS: BP 149/78
--- NOTE | 2018-10-15 08:09 | NUR ---
SITTING UP ON SIDE OF BED WAITING ON BREAKFAST. DENIES NEEDS OR C/O. USES PERSONAL WALKER FOR AMBULATION ASST. IS CONT OF B/B. CALL LIGHT IN REACH
--- NOTE | 2018-10-15 15:39 | NUR ---
RESTING QUIETLY IN BED. EYES CLOSED. NO S/S NEEDS OR DISCOMFORT. CALL LIGHT IN REACH
--- NOTE | 2018-10-15 16:19 | NUR ---
PT REPORTED SMALL AMT OF BLOODY DRAINAGE NOTED FROM LLQ INCISION. NURSE ASSESSED AND FOUND FEW STERI STRIPS MISSING AND 1CM ON END OF INCISION SLIGHTLY OPEN AND SEROUS BLOODY DRAINAGE NOTED. STERI STRIPS REAPPLIED AND SECURED. 4X4s TO COVER INCISION IN PLACE. NURSE WILL MONITOR.
--- NOTE | 2018-10-15 18:03 | NUR ---
SITTING ON SIDE OF BED FINISHING SUPPER. DENIES INCREASED PAIN OR NEEDS. DRESSING HAS BEEN MONITORED TO [facility] BY NURSE. NO NEW BLEEDING OR STRETCHING OF INCISION NOTED. CALL LIGHT IN REACH
[2018-10-15 19:17] VITALS: BP 126/54
--- NOTE | 2018-10-15 20:00 | NUR ---
PT IS RESTING IN BED WITH EYES OPEN. ALERT AND ORIENTED X 3. DENIES ANY PAIN OR DISCOMFORT. PT IS EXCITED TO BE GOING HOME TOMORROW. NO NEEDS VOICED. SR'S ARE UP X 2 IN BED. CALL LIGHT AND BEDSIDE TABLE ARE WITHIN EASY REACH.
--- NOTE | 2018-10-15 21:16 | NUR ---
PT AWAKE, SITTING UP IN BED, PT INST TO USE CALL LIGHT WHEN NEEDING TO GET UP TO VOID, PT VERBALIZES UNDERSTANDING, PT REPORTS THAT HE IS GOING HOME TOMORROW, PT DENIES NEEDS OR PAIN AT THIS TIME, BED IN LOW POSITION, SIDE RAILS X 2, CALL LIGHT IN REACH
--- NOTE | 2018-10-16 | NUR ---
PT AWAKE, JUST RESTING, DENIES NEEDS OR PAIN AT THIS TIME, BED IN LOW POSITION, SIDE RAILS X 2, CALL LIGHT IN REACH
--- NOTE | 2018-10-16 01:04 | NUR ---
RESTING IN BED. SOMEWHAT RESTLESS AND SLEEPS IN SHORT INTERVALS. NOTED SEVERAL TIMES UP ON ALL FOUR EXTREMITIES IN BED. STATES "I'M FINE" WHEN ASK. CURRENTLY LYING ON LEFT SIDE IN BED WITH RESPIRATIONS UNLABORED. CALL LIGHT IN REACH.
--- NOTE | 2018-10-16 04:28 | NUR ---
RESTING IN BED WITH EYES CLOSED.
--- NOTE | 2018-10-16 05:52 | NUR ---
PT AWAKE, REQUESTED AND PROVIDED WARM BLANKET
--- NOTE | 2018-10-16 08:00 | NUR ---
SHIFT ASSMT COMPLETED.PLAN TO DC HOME TODAY.BREAKFAST GIVEN.CL IN REACH.
[2018-10-16 08:14] VITALS: BP 142/60
--- NOTE | 2018-10-16 09:42 | NUR ---
PATIENT DISCHARGING HOME TODAY WITH [facility] WILL RESUME THERAPY AT HOME. NO NEW DME NEEDED AT THIS TIME. DR. ROLLE 10/22/18 @ 11:10, DR. SMITH 10/30/18 @ 10:45. PATIENT CHOICE FORM AND IMFM FORMS SIGNED, COPY GIVEN TO PATIENT AND FILED IN CHART. DISCHARGE INSTRUCTIONS WITH [facility] DATA, FAXED TO PCP,HOME HE[facility] AND REVIEWED WITH PATIENT AND HIS POA.
[2018-10-16] MEDS ORDERED: HYDROCODON-ACE1 EAC7 PO (11:05)
[2018-10-16] MEDS ORDERED: ULTRAM50 MG PO (11:05)
--- NOTE | 2018-10-16 12:00 | NUR ---
EATING LUNCH.SPOKE WITH [facility].REVIEWED MEDS AND CALLED TO PHARMACY.
--- NOTE | 2018-10-16 14:10 | NUR ---
DISCHARGE PAPERS SIGNED.DC'D TO HOME WITH WALKER IN CARE OF DAUGHTER.
--- NOTE | 2018-10-17 14:03 | RHP ---
PATIENT: BILLY GUERRERO MEDICAL RECORD: [id number] ACCOUNT: [id number] LOCATION:[id number] : 30 ADMISSION DATE: 10/09/18 REHABILITATION HISTORY AND PHYSICAL EXAMINATION POST ADMISSION PHYSICIAN EXAMINATION POST ADMISSION PHYSICAL EXAMINATION AND HISTORY AND PHYSICAL DATE OF ADMISSION TO THE REHAB: 10/09/2018 ADMITTING DIAGNOSIS: Debility, status post left hernia repair. HISTORY OF PRESENT ILLNESS: The patient is admitted to the inpatient rehab for debility, status post left inguinal hernia repair. He is an 88-year-old gentleman, who presented to the ED complaining of onset of left groin pain on October 07. Found to have a left inguinal hernia. ER doctor was able to partially reduce it, but not completely. He had general surgery consult, was found to be incarcerated. He underwent a left hernia repair with mesh on October 08. He has had hernia for several years, but just recently started causing pain. He is progressing slowly with therapy. Postoperatively, he has had tachycardia, hypotension, confusion, leukocytosis, postop pain, deconditioning, debility, advanced age, high fall risk, and self-care deficits. These are all barriers to his discharge. The patient lives at home with his niece and was moderately independent to independent with mobility and ADLs. He is currently set up for mod assist with his ADLs and mod assist to max assist for mobility. He and his niece plan for him to return home at his prior level of function or better after his inpatient rehab stay. Comorbidities in this patient include incarcerated hernia, confusion, dementia, history of BPH, history of hypothyroidism, history of degenerative disc disease, history of restless legs syndrome, advanced age, weakness, debility, deconditioning, self-care deficits. PAST MEDICAL HISTORY: Significant for dementia, BPH, hypothyroidism, degenerative disc disease, restless legs syndrome, and aortic stenosis. PAST SURGICAL HISTORY: Includes a transurethral resection of the prostate, right total knee, and now hernia repair. ALLERGIES: No known drug allergies. CURRENT MEDICATIONS: Include tramadol 50 mg every 4 hours p.r.n., Alleman 5/325 one tab every 4 hours p.r.n., and then he has taken MiraLax 17 grams in 8 ounces of water daily. HABITS: No alcohol or tobacco use. FAMILY HISTORY: Noncontributory. SOCIAL HISTORY: The patient hopes to return back home and get back to his prior level of functioning. REVIEW OF SYSTEMS: GENERAL: Does complain of some weakness and fatigue. HEENT: Denies cold, cough, or congestion. CARDIOVASCULAR: Denies any chest pain. LUNGS: Denies any shortness of breath. HISTORY AND PHYSICAL [id number] BILLY GUERRERO PHYSICAL EXAMINATION: VITAL SIGNS: Stable. He is afebrile. GENERAL: A well-developed gentleman, in no acute distress upon exam. HEENT: Normocephalic and atraumatic. Mucosa moist. NECK: Supple with no lymphadenopathy. LUNGS: Clear in upper [place]. He does have decreased breath sounds in the bases. CARDIOVASCULAR: Regular rate and rhythm. No murmurs, rubs or gallops. ABDOMEN: Soft, nontender, nondistended. Positive bowel sounds times 4. Surgical incision looks good. NEUROLOGIC: Does have some problems with some mentation, but he is able to answer most questions in full sentences. LABORATORY DATA: Admit labs showed a white count of 12.8, H&H of 12.6 and 36.6, and platelet count was noted to be 199. Sodium 138, potassium 3.8, BUN and creatinine of 18 and 0.9, and blood sugar is noted to be 110. ASSESSMENT: This is an 88-year-old gentleman admitted to the rehab with a working diagnosis of debility secondary to left inguinal hernia repair. The patient has potential to make improvement. We will institute the following multidisciplinary therapies including, but not limited to, physical, occupational, respiratory, speech, nutritional services, prosthetics, and orthotics. Given his complex medical condition and risk for more complications, rehabilitation services cannot be provided at a lower level of care such as a skilled nurse facility. PLAN: 1. Admit to [facility] for an inpatient therapy to include the following disciplines; A. Physical therapy to improve gait, all transfer skills, and bed mobility to modified independent level. B. Occupational therapy to improve activities of daily living to a modified independent level. C. Case management to assist with discharge planning and placement options. D. Nutrition to assist with nutritional needs. E. Rehabilitation nursing to assist in monitoring the patient's underlying medical conditions and to assist with any type of bowel or bladder management. 2. The patient's current medications and medical care will be continued. 3. The patient will be placed on standard fall precautions. 4. The patient's estimated length of stay is approximately 7-10 days. 5. We will discuss the patient during care team staff meeting this week. TRANSINT:[id number] Voice Confirmation ID: [id number] DOCUMENT ID: [id number] 10/11/2018 Edited for taryn MARI. KAMALJIT notes whether there has been none or any medical/functional change since admission: - No change since preadmission screen. KAMALJIT attests patient continues to be appropriate for IRF: - Continues to be appropriate. HISTORY AND PHYSICAL [id number] BILLY GUERRERO,DENISE EVANS MD at 1403 CC: [id number] DICTATION DATE: 10/10/1834 IT PROJECT LEAD: 10/10/18 09 DIS IN 10/16/[address] [address]
--- NOTE | 2018-12-03 09:47 | DS ---
PATIENT:BILLY GUERRERO :30 MEDICAL RECORD: [id number] DISCHARGE SUMMARY ADMISSION DATE: 10/09/18 DISCHARGE DATE: 10/16/18 This is a discharge dated 10/16/2018 from inpatient rehabilitation. PRIMARY DIAGNOSES: Decreased functional ability and ability to provide activities of daily living secondary to debility status post hernia repair. SECONDARY DIAGNOSES: 1. Dementia. 2. Benign prostatic hypertrophy. 3. Hypothyroidism. 4. Aortic stenosis. 5. Restless leg syndrome. 6. Degenerative disc disease. 7. Hypokalemia. 8. Anemia. HOSPITAL COURSE: Full H&P is located elsewhere on the chart on this 88-year-old male who was admitted to inpatient rehab for physical therapy and occupational therapy to improve gait, transfer skills, bed mobility, and activities of daily living to a modified independent level. He was evaluated by PT and OT and their plans of care were followed. He required assisted care for observation and assessment and medication administration as well as wound care and monitoring of surgical incision. He remained on appropriate home medications. Electrolytes were managed by protocol. He was considered stable for discharge on 10/16/2018. Having good progress with PT and OT and having met 2 of 4 long-term and short-term goals with speech therapy. It was recommended for continued therapy upon discharge. DISCHARGE MEDICATIONS: As per discharge medication reconciliation. DISCHARGE DISPOSITION: The patient is discharged home. He will continue his current diet and level of activity. He will have [facility] for continued nursing in therapies. He will follow up with primary care and specialist as directed. At least 30 minutes was spent in this discharge activity. TRANSINT:[id number] Voice Confirmation ID: [id number] DOCUMENT ID: [id number] Dictated By: INDIRA ALANIS I have interviewed/examined the above patient and agree with these documented findings. DISCHARGE SUMMARY REPORT [id number] BILLY GUERRERO,DENISE EVANS MD at 0947 at 0948 CC: [id number] DICTATION DATE: 12/01/18 1324 DIRECTOR OF STRATEGIC INITIATIVES: 12/02/18 0054 DIS IN 10/16/18 [id number] [place] [address]
== END 2018-10-16 15:30 | disposition home health service (06) | DRG 948 ==
LOC: D.REHAB 12:56
PROVIDERS: ADMIT Emergency Medicine; ATTEND Emergency Medicine
DX: R53.81 Other malaise (principal); K40.90 Unilateral inguinal hernia, without obstruction or gangrene, not specified as recurrent; F03.90 Unspecified dementia, unspecified severity, without behavioral disturbance, psychotic disturbance, mood disturbance, and anxiety; E03.9 Hypothyroidism, unspecified; R53.1 Weakness; G25.81 Restless legs syndrome; R00.0 Tachycardia, unspecified